=== PATIENT | female | born 1955 | race Caucasian/White ===

== ENCOUNTER 2021-02-28 18:19 | Emergency (ER) | payer OTHER ==
[~2021-02-28] VITALS: Ht 170.2 cm; Wt 74.8 kg
[2021-02-28] MEDS ORDERED: MORPHINE SULFATE 4 MG/ML SYR/VIAL IV ONE (19:15)
[2021-02-28] MEDS ORDERED: HYDROmorphone HCL 2 MG/ML VL IV ONE ×2 (21:30→23:45)
[2021-02-28 21:41] LABS: Basophils # (auto) 0 10 ^3/uL (0-0.2); Basophils % (auto) 0.1 % (0.0-2.0); Eosinophils # (auto) 0 10 ^3/uL (0-0.8); Eosinophils % (auto) 0.1 % (0.0-7.0); Hematocrit 37.7 % (36.0-46.0); Hemoglobin 12.6 g/dL (12.2-16.2); Lymphocytes # (auto) 0.9 10 ^3/uL (0.4-5.4); Lymphocytes % (auto) 4.5 % (10.0-50.0); Mean Corpuscular Hemoglobin 30.3 pg (28.0-32.0); Mean Corpuscular Hgb Conc. 33.5 g/dL (32.0-36.0); Mean Corpuscular Volume 90.5 fL (80.0-100.0); Monocytes # (auto) 0.8 10 ^3/uL (0-1.3); Monocytes % (auto) 3.8 % (0.0-12.0); Neutrophils # (auto) 19.1 10 ^3/uL (1.6-8.6); Neutrophils % (auto) 91.5 % (37.0-80.0); Platelet Count (auto) 295 10^3/uL (140-450); Red Blood Cells 4.16 10^6/uL (4.0-5.20); Red Cell Distribution Width 13.6 % (11.8-14.3); White Blood Cell 20.9 10^3/uL (4.4-10.8)
[2021-02-28 21:58] LABS: Chloride 106 mmol/L (98-107); Sodium 137 mmol/L (136-145)
[2021-02-28 22:07] LABS: Alanine Aminotransferase 25 U/L (13-56); Albumin 3.6 g/dL (3.4-5.0); Alkaline Phosphatase 94 U/L (45-117); Anion Gap 7 (5-15); Aspartate Aminotransferase 25 U/L (15-37); BUN/Creatinine Ratio 33.8; Bilirubin, Total 0.2 mg/dL (0.2-1.0); Blood Urea Nitrogen 22 mg/dL (7-18); Calcium 8.1 mg/dL (8.5-10.1); Carbon Dioxide 24 mmol/L (21-32); GFR African American 118 mL/min; GFR Non-African American 98 mL/min; Glucose 152 mg/dL (74-106); Total Protein 7.2 g/dL (6.4-8.2)
[2021-02-28 22:20] LABS: INR 0.97 (0.9-1.15); Partial Thromboplastin Time 24.1 sec (23.0-31.2)
[2021-02-28 22:50] LABS: Urine Bacteria FEW /hpf (None Seen); Urine Blood Negative /uL (Negative); Urine Specific Gravity 1.025 (1.001-1.035); Urine WBC 1 /hpf (0 - 5)
[2021-03-01 00:31] VITALS: BP 125/69
== END 2021-03-01 00:52 | disposition short-term general hospital (02) ==
LOC: EDBD 18:19 → ER 18:19
DX: S72.141A Displaced intertrochanteric fracture of right femur, initial encounter for closed fracture (principal); W01.0XXA Fall on same level from slipping, tripping and stumbling without subsequent striking against object, initial encounter; Y93.89 Activity, other specified; Y92.89 Other specified places as the place of occurrence of the external cause; Y99.8 Other external cause status; Z20.822 Contact with and (suspected) exposure to COVID-19
CPT/HCPCS: 36415; 51702; 71045; 72170; 80053; 81001; 83735; 83880; 84484; 85025; 85379; 85610; 85730; 87426; 96374; 96375; 96376; 99285; J1170; J2270